=== PATIENT | female | born 1955 | race Caucasian/White ===

== ENCOUNTER 2016-09-13 14:50 | Emergency (ER) | payer OTHER ==
--- NOTE | ~2016-09-13 | CT71 ---
[facility] A Service of [facility] & [facility] RADIOLOGY TEXT RESULTS PATIENT: KARY SUAREZ LOCATION: [facility] : 53 UNIT #: [id number] AGE: [address]: Magan Plascencia MD SEX: F ORDER DR: [id number] [facility] [address] [place], [place] [address] [id number] E MR#: [id number] Acc #: [id number] NAME: KARY SUAREZ. : 1955 SEX: F STUDY DATE/TIME: 09/13/2016 16:19 UNIT: [facility] ROOM: STUDY DESCRIPTION: CT Head Wo Contrast Attending Physician: Mgaan Plascencia M.D. Ordering Physician: Magan Plascencia M.D. Primary Care Physician: Max Gibbs M.D. MEDICAL IMAGING REPORT This report is preliminary unless electronic signature is present EXAM CT head 09/13/2016 HISTORY Pain. Fell at work 09/10/2016. Dizziness. TECHNIQUE CT head performed skull base through vertex without intravenous contrast. This CT exam was performed with one or more of the following radiation dose reduction techniques: automatic exposure control, adjustment of mA and/or kV according to patient size, and iterative reconstruction. COMPARISON No prior CTs of head for comparison FINDINGS The brainstem is unremarkable. Cerebellum and cerebral hemispheres show normal villeda matter - white matter differentiation. No intracranial hemorrhage. No evidence of acute cortical ischemia. The midline structures are nondisplaced. Basal ganglia intact. Ventricles, cisterns and sulci within normal limits of size and contour. No intra or extraaxial mass effect or abnormal intracranial fluid collection. There are cavernous carotid arterial calcifications. The visualized paranasal sinuses and mastoid air cells are clear. No fracture. Posterior right paracentral scalp vertex hematoma measuring approximately 1.7 cm x 1.1 cm in diameter. There is no soft tissue defect, subcutaneous air or radiodense foreign body. No fracture. IMPRESSION 1. The brain appears normal. If the patient has ongoing neurologic symptoms, consider follow up imaging. 2. No fracture. 3. Posterior right paracentral scalp vertex subcutaneous hematoma [facility] A Service of [facility] & [facility] RADIOLOGY TEXT RESULTS PATIENT: KARY SUAREZ LOCATION: [facility] : 53 UNIT #: [id number] AGE: [address]: Magan Plascencia MD SEX: F ORDER DR: measuring approximately 1.1 cm x 1.7 cm. No associated soft tissue defect, subcutaneous air or radiodense foreign body. Dictated by... Juanito Wilkes M.D. THIS IS AN ELECTRONICALLY VERIFIED REPORT Juanito Wilkes M.D. at 09/15/2016 11:34 AM CARLIE/nancy TD: 09/14/2016 10:41 JOB #: [id number] MEDICAL IMAGING REPORT Page 1 of 1 COPY
== END 2016-09-13 17:16 | disposition home or self-care (01) ==
LOC: CED 14:50
DX: S00.03XA Contusion of scalp, initial encounter (principal); S06.0X9A Concussion with loss of consciousness of unspecified duration, initial encounter; F17.210 Nicotine dependence, cigarettes, uncomplicated; Z88.2 Allergy status to sulfonamides; W01.0XXA Fall on same level from slipping, tripping and stumbling without subsequent striking against object, initial encounter; Y92.69 Other specified industrial and construction area as the place of occurrence of the external cause; Y99.0 Civilian activity done for income or pay
CPT/HCPCS: 70450; 99284